=== PATIENT | female | born 2000 | race Caucasian/White ===

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

== ENCOUNTER 2018-03-05 01:29 | Emergency (ER) | payer MEDICAID ==
[~2018-03-05] VITALS: Ht 157.5 cm; Wt 63.5 kg
[2018-03-05 01:40] VITALS: BP_SYST 143
--- NOTE | 2018-03-05 01:40 | NUR ---
Pt ambulatory to bed 8 for evaluation
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
--- NOTE | 2018-03-05 01:42 | NUR ---
ER at bedside examining patient.
[2018-03-05] MEDS ORDERED: IBUPROFEN 800 MG TABLET PO ONE (01:45)
--- NOTE | 2018-03-05 01:49 | NUR ---
Spoke with [place] [employer] Christiane Atkinson. Pertinent information provided to dispatcher. Informed to expect follow up contact from [place] [employer] officer.
--- NOTE | 2018-03-05 02:20 | NUR ---
Spoke with Will ATWOOD. Officer requested patient contact information at this time.
[2018-03-05 02:37] VITALS: BP_SYST 141
--- NOTE | 2018-03-05 02:37 | NUR ---
Patient given written and verbal discharge instructions and verbalizes understanding. ER MD discussed with patient the results and treatment provided. Patient in stable condition. ID arm band removed. Rx of Motrin given. Patient educated on pain management and to follow up with PMD. Pain Scale 2/10. Opportunity for questions provided and answered. Medication side effect fact sheet provided.
== END 2018-03-05 02:37 | disposition home or self-care (01) ==
LOC: SED 01:29
DX: S40.021A Contusion of right upper arm, initial encounter (principal); J45.909 Unspecified asthma, uncomplicated; Y08.89XA Assault by other specified means, initial encounter; Y93.89 Activity, other specified; Y92.89 Other specified places as the place of occurrence of the external cause; Y99.8 Other external cause status
CPT/HCPCS: 99282

== ENCOUNTER 2021-01-23 22:01 | Emergency (ER) | payer SELFPAY ==
[~2021-01-23] VITALS: Ht 152.4 cm; Wt 66.2 kg
[2021-01-23 22:10] VITALS: BP_SYST 134
--- NOTE | 2021-01-23 22:15 | NUR ---
PT TO BED 5 FOR EVALUATION. REPORT GIVEN TO MICHELLE GURROLA WHO [facility].
--- NOTE | 2021-01-23 22:20 | NUR ---
ER at bedside examining patient.
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
--- NOTE | 2021-01-23 23:16 | NUR ---
ULTRA SOUND AT BEDSIDE
[2021-01-23 23:26] LABS: BASOPHILS # (AUTO) 0.1 K/uL (0.0-0.2); BASOPHILS % (AUTO) 0.7 % (0.0-2.0); EOSINOPHILS # (AUTO) 0.3 K/uL (0.0-0.4); EOSINOPHILS % (AUTO) 2.8 % (0.0-4.0); HEMOGLOBIN 11.9 g/dL (12.0-16.0); LYMPHOCYTES # (AUTO) 4.1 K/uL (1.0-5.5); LYMPHOCYTES % (AUTO) 39.8 % (20.5-51.5); MEAN CORPUSCULAR HEMOGLOBIN 32 pg (27-31); MEAN CORPUSCULAR HGB CONC 34 % (32-36); MEAN CORPUSCULAR VOLUME 94 fL (79.0-98.0); MONOCYTES % (AUTO) 9.3 % (1.7-9.3); NEUTROPHILS # (AUTO) 4.9 K/uL (1.8-7.7); NEUTROPHILS % (AUTO) 47.4 % (40.0-70.0); PLATELET COUNT (AUTO) 250 K/uL (130-430); RED BLOOD CELL COUNT(AUTO) 3.74 MIL/uL (4.2-6.2); RED CELL DISTRIBUTION WIDTH 14.2 % (9.0-15.0); WHITE BLOOD COUNT (AUTO) 10.3 K/uL (4.8-10.8)
[2021-01-23 23:36] LABS: ANION GAP 7 (5-15); CALCIUM 8.6 mg/dL (8.4-11.0); CHLORIDE 105 mmol/L (98-107); CREATININE 0.77 mg/dL (0.55-1.30); GLUCOSE 100 mg/dL (70-99); POTASSIUM 4.1 mmol/L (3.5-5.1); SODIUM SERUM 143 mmol/L (136-145); UREA NITROGEN, BLOOD 7 mg/dL (8-21)
[2021-01-23 23:44] LABS: ALANINE AMINOTRANSFERASE 12 U/L (12-78); ALBUMIN 3.1 g/dL (3.4-4.8); ASPARTATE AMINOTRANSFERASE 15 U/L (10-37); TOTAL BILIRUBIN 0.2 mg/dL (0.0-1.0)
[2021-01-23 23:45] LABS: GFR AFRICAN AMERICAN 121 mL/min (>90)
--- NOTE | 2021-01-24 00:35 | NUR ---
DE IS CALM AND RESTING IN BED, AWAITING DISCHARGE
--- NOTE | 2021-01-24 01:08 | NUR ---
Patient given written and verbal discharge instructions and verbalizes understanding. ER MD discussed with patient the results and treatment provided. Patient in stable condition. ID arm band removed. Patient educated on pain management and to follow up with PMD. Pain Scale 6/10. Opportunity for questions provided and answered. Medication side effect fact sheet provided.
[2021-01-24 01:27] VITALS: BP_SYST 104
== END 2021-01-24 01:27 | disposition home or self-care (01) ==
LOC: SED 22:01
DX: S40.021A Contusion of right upper arm, initial encounter (principal); R07.89 Other chest pain; X58.XXXA Exposure to other specified factors, initial encounter; Y93.89 Activity, other specified; Y92.89 Other specified places as the place of occurrence of the external cause; Y99.8 Other external cause status
CPT/HCPCS: 36415; 71045; 80053; 81025; 84484; 85025; 93005; 93971; 99285

== ENCOUNTER 2021-01-28 20:15 | Emergency (ER) | payer SELFPAY ==
[~2021-01-28] VITALS: Ht 152.4 cm; Wt 66.2 kg
[2021-01-28 20:30] VITALS: BP_SYST 110
== END 2021-01-28 21:45 | disposition left against medical advice (07) ==
LOC: SED 20:15
DX: M79.601 Pain in right arm (principal); Z53.21 Procedure and treatment not carried out due to patient leaving prior to being seen by health care provider

== ENCOUNTER → 2022-03-05 | Emergency (ER) | payer SELFPAY ==
[~2022-03-05] VITALS: Ht 152.4 cm; Wt 61.2 kg
--- NOTE | 2022-03-05 16:00 | NUR ---
LEFT WITHOUT PAPERWORK, YELLED AT DR FELIPE. CN NOTIFIED.
--- NOTE | 2022-03-05 16:00 | NUR ---
DR FELIPE IN TRIAGE TO SEE PT
[2022-03-05 16:44] VITALS: BP_SYST 124
== END | disposition home or self-care (01) ==
LOC: SED 15:45
DX: M79.18 Myalgia, other site (principal); M54.2 Cervicalgia; M54.50 Low back pain, unspecified; M25.511 Pain in right shoulder; J45.909 Unspecified asthma, uncomplicated; Z79.899 Other long term (current) drug therapy; V49.40XA Driver injured in collision with unspecified motor vehicles in traffic accident, initial encounter; Y93.89 Activity, other specified; Y92.89 Other specified places as the place of occurrence of the external cause; Y99.8 Other external cause status
CPT/HCPCS: 99281